=== PATIENT | female | born 1990 | race Caucasian/White ===

== ENCOUNTER 2021-11-18 09:52 | Inpatient (IN) | payer OTHER, SELFPAY ==
[~2021-11-18] VITALS: Ht 160 cm; Wt 89.8 kg
[2021-11-18] MEDS ORDERED: PRETAB PO (09:57)
[2021-11-18] MEDS ORDERED: LACTATED RINGERS 1,000 ML IV SCH (10:00)
[2021-11-18 12:00] LABS: BASOPHILS % (AUTO) 0.2 % (0.0-2.0); EOSINOPHILS % (AUTO) 0.2 % (0.0-4.0); HEMATOCRIT 34.1 % (36-48); HEMOGLOBIN 11.6 g/dL (12.0-16.0); LYMPHOCYTES # (AUTO) 1.8 K/uL (2.5-16.5); LYMPHOCYTES % (AUTO) 17.5 % (20.5-51.1); MEAN CORPUSCULAR HEMOGLOBIN 30 pg (27-31); MEAN CORPUSCULAR HGB CONC 34 g/dL (33-37); MEAN CORPUSCULAR VOLUME 89.3 fL (80-94); MONOCYTES # (AUTO) 0.7 K/uL (0.8-1.0); MONOCYTES % (AUTO) 6.4 % (1.7-9.3); NEUTROPHILS # (AUTO) 7.8 K/uL (1.8-7.7); NEUTROPHILS % (AUTO) 75.7 % (42.2-75.2); PLATELET COUNT (AUTO) 196 K/uL (140-450); RED BLOOD CELL COUNT(AUTO) 3.82 MIL/uL (4.20-5.40); RED CELL DISTRIBUTION WIDTH 13.3 % (11.6-13.7); WHITE BLOOD COUNT (AUTO) 10.4 K/uL (4.8-10.8)
[2021-11-18 12:07] LABS: BILIRUBIN,URINE NEGATIVE (NEGATIVE); BLOOD, URINE NEGATIVE (NEGATIVE); COLOR,URINE YELLOW (YELLOW); LEUKOCYTE ESTERASE ,URINE 1+ (NEGATIVE); PH,URINE 6.5 (5.0-9.0); UGLUCOSE NEGATIVE (NEGATIVE)
[2021-11-18 12:08] VITALS: BP 114/67
[2021-11-18 12:10] LABS: RBC,URINE 0-5 /HPF (0-5)
[2021-11-18 12:11] LABS: NITRITE, URINE POSITIVE (NEGATIVE)
[2021-11-18 12:13] LABS: YEAST,URINE Few /HPF (None Seen)
[2021-11-18 12:14] LABS: APPEARANCE,URINE HAZY (CLEAR)
[2021-11-18 12:16] LABS: ALBUMIN 2.5 g/dL (3.4-5.0); ANION GAP 16.2 (8-16); CARBON DIOXIDE 22.4 mmol/L (21-32); CREATININE 0.4 mg/dL (0.6-1.3); POTASSIUM 3.6 mmol/L (3.5-5.1); TOTAL BILIRUBIN 0.3 mg/dL (0.0-1.0)
[2021-11-18] MEDS ORDERED: MORPHINE PRES FREE 10 MG/10 ML AMP IV ONE (12:46)
[2021-11-18] MEDS ORDERED: MIDAZOLAM 2 MG/2 ML VIAL ONE (12:46)
[2021-11-18] MEDS ORDERED: oxyCODONE/APAP 5/325 MG 1 TAB TAB PO PRN (13:40)
[2021-11-18] MEDS ORDERED: KETOROLAC 30 MG/ML VIAL IVP PRN (13:40)
[2021-11-18] MEDS ORDERED: TEMAZEPAM 15 MG CAP PO PRN (13:40)
[2021-11-18] MEDS ORDERED: IBUPROFEN 800 MG TAB PO PRN (13:40)
[2021-11-18] MEDS ORDERED: OXYTOCIN 20 UNITS in LACTATED RINGERS 1,000 ML IV SCH (13:40)
[2021-11-18] MEDS ORDERED: METHYLERGONOVINE 0.2 MG/ML AMP IM PRN (13:40)
[2021-11-18] MEDS ORDERED: MEASLES, MUMPS, AND RUBELLA 1 VIAL SQVAC PRN ×2 (13:40→13:50)
[2021-11-18] MEDS ORDERED: NALBUPHINE 10 MG/ML AMP IVP PRN (13:55)
[2021-11-18] MEDS ORDERED: ONDANSETRON 4 MG/2 ML VIAL IVP PRN ×2 (13:55)
[2021-11-18] MEDS ORDERED: HYDROmorphone 1 MG/ML AMP IVP PRN (13:55)
[2021-11-18] MEDS ORDERED: MEPERIDINE 25 MG/ML SYR IVP PRN (13:55)
[2021-11-18] MEDS ORDERED: NALOXONE 0.4 MG/ML VIAL IVP PRN ×3 (13:55)
[2021-11-18] MEDS ORDERED: diphenhydrAMINE 50 MG/ML VIAL IVP PRN ×2 (13:55)
[2021-11-18] MEDS: OXYTOCIN 20 UNITS/LR PREMIX 1,000 ML IV ONE ×2 (14:41→14:56)
[2021-11-18] MEDS: KETOROLAC 30 MG/ML VIAL IM/IVP SCH (18:11)
[2021-11-18] MEDS: DOCUSATE SOD/SENNA 50/8.6 MG 1 TAB PO SCH (21:00)
[2021-11-18] MEDS ORDERED: OXYTOCIN 20 UNITS/LR PREMIX 1,000 ML IV ONE (22:26)
[2021-11-18] MEDS: OXYTOCIN 20 UNITS in LACTATED RINGERS 1,000 ML IV SCH (22:49)
[2021-11-19] MEDS: KETOROLAC 30 MG/ML VIAL IM/IVP SCH ×2 (00:03→05:55)
[2021-11-19] MEDS ORDERED: OXYTOCIN 20 UNITS/LR PREMIX 1,000 ML IV ONE (05:08)
[2021-11-19 05:54] LABS: BASOPHILS % (AUTO) 0.2 % (0.0-2.0); EOSINOPHILS # (AUTO) 0.1 K/uL (0-0.4); EOSINOPHILS % (AUTO) 0.7 % (0.0-4.0); HEMOGLOBIN 9.2 g/dL (12.0-16.0); LYMPHOCYTES # (AUTO) 1.9 K/uL (2.5-16.5); LYMPHOCYTES % (AUTO) 19.1 % (20.5-51.1); MEAN CORPUSCULAR HEMOGLOBIN 31 pg (27-31); MEAN CORPUSCULAR HGB CONC 34 g/dL (33-37); MEAN CORPUSCULAR VOLUME 90.2 fL (80-94); MONOCYTES # (AUTO) 0.8 K/uL (0.8-1.0); MONOCYTES % (AUTO) 8.1 % (1.7-9.3); NEUTROPHILS % (AUTO) 71.9 % (42.2-75.2); PLATELET COUNT (AUTO) 140 K/uL (140-450); RED CELL DISTRIBUTION WIDTH 13.5 % (11.6-13.7); WHITE BLOOD COUNT (AUTO) 9.8 K/uL (4.8-10.8)
[2021-11-19] MEDS: OXYTOCIN 20 UNITS in LACTATED RINGERS 1,000 ML IV SCH (05:55)
--- NOTE | 2021-11-19 08:58 | NUR ---
PATIENT HAS BEEN SCREENED AND CATEGORIZED LOW NUTRITION RISK. PATIENT WILL BE SEEN WITHIN 7 DAYS OF ADMISSION. 11/24/[address]
[2021-11-19] MEDS: SIMETHICONE 80 MG TAB.CHEW PO PRN (09:22)
[2021-11-19] MEDS: oxyCODONE/APAP 5/325 MG 1 TAB TAB PO PRN ×2 (14:03→22:21)
[2021-11-19] MEDS: DOCUSATE SOD/SENNA 50/8.6 MG 1 TAB PO SCH (21:00)
[2021-11-19] MEDS ORDERED: FLU VACCINE QS2021-22 0.5 ML SYR IMVAC ONE (23:00)
[2021-11-20] MEDS: SIMETHICONE 80 MG TAB.CHEW PO PRN (09:56)
[2021-11-20] MEDS ORDERED: FERR325E14 PO (15:23)
[2021-11-20] MEDS ORDERED: IBUP-2213 PO (15:24)
[2021-11-20] MEDS ORDERED: ACET-5629 PO (15:25)
== END 2021-11-20 17:45 | disposition home or self-care (01) | DRG 787 ==
LOC: MLD 09:52 → MFCC 15:15
PROVIDERS: ADMIT Obstetrics & Gynecology; ATTEND Obstetrics & Gynecology
PROC: 10D00Z1 Extraction of Products of Conception, Low, Open Approach (ICD-10-PCS; principal; 2021-11-18 12:00)
DX: O34.211 Maternal care for low transverse scar from previous cesarean delivery (principal); R71.0 Precipitous drop in hematocrit; Z3A.38 38 weeks gestation of pregnancy; Z37.0 Single live birth; Z20.822 Contact with and (suspected) exposure to COVID-19; O99.02 Anemia complicating childbirth
CPT/HCPCS: 36415; 51702; 80053; 81001; 85025; 86592; 86886; 86900; 86901; 87086; 90707; 90715; J0690; J1200; J1885; J2250; J2270; J2405; J2590; J7030; J7060; J7120